=== PATIENT | male | born 1970 | race Caucasian/White ===

== ENCOUNTER 2020-01-14 14:15 | Emergency (ER) | payer BC, SELFPAY ==
[2020-01-14 14:58] VITALS: BP 149/98; PULSE 74; RESP 20; TEMP 36.6; O2SAT 97; BMI 20.2
--- NOTE | 2020-01-14 15:15 | HMH.EDUTC ---
[facility] [place] Clinical Impression: Viral syndrome Sinusitis Qualifiers: Sinusitis location: unspecified location Chronicity: acute Recurrence: non-recurrent Qualified Code(s): J01.90 - Acute sinusitis, unspecified Disposition: Home, Self-Care Condition on Discharge: Good Instructions: Sinusitis, DI for Sinusitis Additional Instructions: Drink plenty of fluids. Take tylenol or ibuprofen for pain or fever. Take the medications as directed. Follow up with your regular doctor. THE COUGH SYRUP WILL MAKE YOU DROWSY, SO DON'T DRIVE OR OPERATE HEAVY MACHINERY AFTER TAKING IT. GO TO THE ER FOR ANY WORSENING SYMPTOMS FOLLOW THE DIRECTIONS ON THE COVID-19 HAND OUT THAT WE GAVE YOU REGARDING SELF-ISOLATION UNTIL YOU KNOW YOUR COVID-19 RESULTS Prescriptions: Promethazine/Dextromethorphan [Promethazine-Dm Syrup] 5 ml PO Q6HP PRN #240 syrup PRN Reason: Cough Transmission Status: Received by [facility] Azithromycin [Z-Mohan 250mg Tab*] 250 mg PO UD DOSE PK #6 tab Transmission Status: Received by [facility] Referrals: Blue Ernst [Primary Care Provider] - Forms: Work/School Release Time of Disposition: 15:23 Medical Decision Making - Medical Records Medical records reviewed: No: I reviewed the patient's medical records. - Angel Inquiry Pt receiving controlled substance: No Vital Signs: 01/14/20 14:58 01/14/20 15:30 Temperature 97.8 F 97.8 F Temperature Source Oral Pulse Rate 74 Pulse Rate [Right Brachial] 74 Respiratory Rate 20 20 Blood Pressure 149/98 H Blood Pressure [Right Arm] 149/98 H Blood Pressure Mean [Right Arm] 115 Blood Pressure Source [Right Arm] Automatic Cuff Blood Pressure Position [Right Arm] Sitting 02 Sat by Pulse Oximetry 97 Oxygen Delivery Method Room Air [facility] [place] - General Stated complaint: lost of taste and smell,diarrhea Time Seen by Provider: 01/14/20 15:17 Mode of Arrival: Ambulatory Source of Information: Patient Limitations: No Limitations Description of Symptoms (Recalled from Triage Doc. by RN): PATIENT C/O UNABLE TO TASTE OR SMELL, MID BACK PAIN, CONGESTION, AND PROD COUGH SINCE TUESDAY; DENIES ANY KNOWN COVID EXPOSURE HEENT Symptoms (Recalled from RN notes): Yes Resp Symptoms (Recalled from RN notes): Yes Skin Symptoms (Recalled from RN notes): No MS Symptoms (Recalled from RN notes): No Functional Status (Recalled from RN notes): WNL - History of Present Illness Provider Complaint: He states that for the past 2 days he has had diarrhea, body aches, sinus congestion and loss of taste and smell. He denies any known COVID-19 exposure. - Related Data Home Medications Medication Instructions Recorded Confirmed Pantoprazole Sodium [Protonix 40mg 40 mg PO DAILY 01/14/20 01/14/20 tablet] lisinopriL [Lisinopril 30mg Tablet] 30 mg PO DAILY 01/14/20 01/14/20 Previous Rx's Medication Instructions Recorded Azithromycin [Z-Mohan 250mg Tab*] 250 mg PO UD DOSE PK #6 tab 01/14/20 Promethazine/Dextromethorphan 5 ml PO Q6HP PRN #240 syrup 01/14/20 [Promethazine-Dm Syrup] Allergies Allergy/AdvReac Type Severity Reaction Status Date / Time Penicillins [PENICILLINS] Allergy Unknown Verified 01/14/20 15:03 - Worker's Comp Is this a Worker's Comp case?: No [facility] History - Hepatitis A Screen Drug use history?: No High risk sexual behaviors?: No History of sexually transmitted infection?: No Currently employed?: No Childcare worker?: No Do you have indoor plumbing?: Yes Do you have electricity?: Yes Attestation statement:: This patient has been screened for Hepatitis A risk factors. I have reviewed the patient's past medical history: Yes - Social History Alcohol Intake: never Occupational Status: other ROS Obtained: Yes All systems reviewed & no additional complaints - Constitutional Constitutional: Reports chills, Reports fever(s), Reports poor appetite, Reports malaise - Eyes Eyes: Reports as
[2020-01-14 15:30] VITALS: BP 149/98; PULSE 74; RESP 20; TEMP 36.6; O2SAT 97
== END 2020-01-14 15:33 | disposition home or self-care (01) ==
PROVIDERS: Emergency Provider Nurse Practitioner Family; PCP Family Medicine
DX: B34.9 Viral infection, unspecified (principal); J01.90 Acute sinusitis, unspecified; Z20.828 Contact with and (suspected) exposure to other viral communicable diseases; I10 Essential (primary) hypertension; Z88.0 Allergy status to penicillin; Z79.899 Other long term (current) drug therapy
CPT/HCPCS: 99201; U0003

== ENCOUNTER 2020-03-08 10:21 | Emergency (ER) | payer BC, SELFPAY ==
[2020-03-08 10:49] VITALS: BP 144/92; PULSE 87; RESP 18; TEMP 36.9; O2SAT 98; BMI 23.6
--- NOTE | 2020-03-08 10:52 | HMH.EDUTC ---
[facility] [place] Clinical Impression: Exposure to COVID-19 virus, Encounter for laboratory testing for COVID-19 virus Disposition: Home, Self-Care Condition on Discharge: Good Instructions: Preventing the Spread of Coronavirus Discharge Instructions Additional Instructions: *Monitor Temp, Over the counter Motrin or Tylenol as directed/as needed Tylenol every 4 hours and Motrin every 6 hours (as long as your family doctor has told you that you can take it) for fever or pain. and straight to ER if unable to lower temp less than 101.0 after medication given *Warm salt water gargles may help to soothe the throat *Throat Lozenges *Warm fluids like tea with honey may help to soothe the throat *Sleep elevated *Humidifier/Vaporizer *Flonase 2 sprays in each nostril daily but be aware that it may take 2-3 days before you notice improvement Follow up IMMEDIATELY for new or worsening symptoms or no Noticeable improvement over the next 48-72 hours. 911 for difficulty breathing or swallowing You was tested for today for COVID19 your test result should be back in the next 24-48 hours, you may call to the [facility] later today or tomorrow to see if your test results are back and the result [phone] [facility] hours are 9am-9pm You was given a handout with instructions for Self Quarantine and Self isolation for while you wait on test results and what to do if they are positive If you are positive the Health Dept will be contacting you also Prescriptions: Fluticasone Propionate [Flonase 50mcg nasal spray 16gm] 1 spr NS DAILY #1 bottle Transmission Status: Pending to [facility] Referrals: Blue Ernst [Primary Care Provider] - As needed Forms: Work/School Release Medical Decision Making - Angel Inquiry Pt receiving controlled substance: No Angel was queried for this patient: No Vital Signs: 03/08/20 10:49 Temperature 98.4 F Temperature Source Oral Pulse Rate [Radial] 87 Respiratory Rate 18 Blood Pressure [Right Arm] 144/92 H Blood Pressure Mean [Right Arm] 109 Blood Pressure Source [Right Arm] Automatic Cuff Blood Pressure Position [Right Arm] Sitting 02 Sat by Pulse Oximetry 98 Oxygen Delivery Method Room Air Orders (Tests/Meds): ORDERS Category Date Time Status Covid-19 Nasal PCR ([facility]) Routine Lab 11/28/20 10:34 [place] [facility] [place] - General Stated complaint: covid test Time Seen by Provider: 03/08/20 10:52 Mode of Arrival: Ambulatory Source of Information: Patient Limitations: No Limitations Description of Symptoms (Recalled from Triage Doc. 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 tested positive for COVID States that he is not having any symptoms but was recommended that he come in and get tested due to working around them - Related Data Home Medications Medication Instructions Recorded Confirmed Pantoprazole Sodium [Protonix 40mg 40 mg PO DAILY 01/14/20 01/14/20 tablet] lisinopriL [Lisinopril 30mg Tablet] 30 mg PO DAILY 01/14/20 01/14/20 Previous Rx's Medication Instructions Recorded Azithromycin [Z-Mohan 250mg Tab*] 250 mg PO UD DOSE PK #6 tab 01/14/20 Promethazine/Dextromethorphan 5 ml PO Q6HP PRN #240 syrup 01/14/20 [Promethazine-Dm Syrup] Fluticasone Propionate [Flonase 1 spr NS DAILY #1 bottle 03/08/20 50mcg nasal spray 16gm] Allergies Allergy/AdvReac Type Severity Reaction Status Date / Time Penicillins [PENICILLINS] Allergy Unknown Verified 01/14/20 15:03 - Worker's Comp Is this a Worker's Comp case?: No [facility] History - Hepatitis A Screen Drug use history?: No High risk sexual behaviors?: No History of sexually transmitted infection?: No
[2020-03-08 11:08] VITALS: BP 144/92; PULSE 87; RESP 18; TEMP 36.9; O2SAT 98
== END 2020-03-08 11:09 | disposition home or self-care (01) ==
PROVIDERS: Emergency Provider Nurse Practitioner; PCP Family Medicine
DX: Z20.828 Contact with and (suspected) exposure to other viral communicable diseases (principal)
CPT/HCPCS: 99201; U0003

== ENCOUNTER → 2022-07-06 11:15 | Outpatient (CLI) | payer BC, SELFPAY ==
[2022-07-06 13:57] LABS: Microscopic, Urine URINE MICROSCOPIC (MICROSCOPIC)
[2022-07-06 14:00] LABS: Appearance,Urine CLEAR (Clear); Bilirubin,Urine Negative (Negative); Blood, Urine Negative (Negative); Color,Urine YELLOW (Yellow); Glucose,Urine (UA) Negative (Negative); Ketones,Urine Negative (Negative); Leukocyte Esterase,Urine Negative (Negative); Nitrate,Urine Negative (Negative); Protein,Urine Negative (Negative); Specific Gravity, Urine 1.015 (1.005-1.030); Urobilinogen,Urine 0.2 EU/dl (0.2)
[2022-07-06 14:21] LABS: Bacteria,Urine Trace /lpf; Squamous Epithelial Cell,Urine Occasional #/hpf (0-5)
== END ==
PROVIDERS: PCP Nurse Practitioner Family; Visit Provider Nurse Practitioner Family
DX: M54.9 Dorsalgia, unspecified (principal)
CPT/HCPCS: 81001

== ENCOUNTER 2023-11-28 14:06 | Outpatient (CLI) | payer BC, SELFPAY ==
[2023-11-28 17:52] LABS: Coronavirus 19, PCR Not Detected (NotDetected); Influenza A, PCR Not Detected (NotDetected); Influenza B, PCR Not Detected (NotDetected)
== END 2023-11-28 23:59 | disposition home or self-care (01) ==
LOC: LAB.DROPOF 11-29 09:20
PROVIDERS: PCP Nurse Practitioner; Visit Provider Nurse Practitioner
DX: J06.9 Acute upper respiratory infection, unspecified (principal); Z72.0 Tobacco use
CPT/HCPCS: 87636

== ENCOUNTER 2024-04-13 19:09 | Outpatient (CLI) | payer BC, SELFPAY | END 2024-04-13 23:59 | disposition home or self-care (01) | LOC: LAB.DROPOF 19:09 | PROVIDERS: PCP Nurse Practitioner Family; Visit Provider Nurse Practitioner Family | DX: A64 Unspecified sexually transmitted disease (principal) | CPT/HCPCS: 87491 ==

== ENCOUNTER 2024-05-11 04:47 | Emergency (ER) | payer BC, SELFPAY ==
--- NOTE | 2024-05-11 04:55 | HMH.EDGENADL ---
Discharge Plan Disposition Patient Disposition: Home, Self-Care Prescriptions Prescriptions: No Action pantoprazole 40 MG tablet,delayed release (DR/EC) 40 mg PO BID losartan 50 mg tablet 50 mg PO DAILY buspirone 5 mg tablet 5 mg PO BID nicotine 14 mg/24 hr patch 24 hour 14 mg transdermal DAILY benzonatate 100 mg capsule 100 mg PO TID Referrals Follow up/Referrals: Provider,Referral, MD [Primary Care Provider] - See instructions Activity Restrictions/Add. Instructions Additional Instructions/Restrictions: Please follow-up with your primary care provider. Please return to the emergency department if you develop any new or worsening symptoms or become concerned for your health. Clinical Impressions Clinical Impression: Chronic hyponatremia Instructions Patient Instructions: DI for Diarrhea and Traveler's Diarrhea -- Adult, DI for Diarrhea and Traveler's Diarrhea -- Child, DI for Nausea -- Adult, DI for Nausea -- Child Print Language Print Language: Serbian Discharge ED Provider: Rolando Kapoor General Adult HPI General Chief complaint: Nausea/Vomiting/Diarrhea Stated complaint: low sodium, nausea Time Seen by Provider: 05/11/24 04:55 History of Present Illness HPI narrative: 53-year-old male with history of recent admissions to the hospital in [facility] for hyponatremia presents for concern for hyponatremia. He reports that he went 2 weeks ago outside hospital for nausea and was diagnosed with hyponatremia with a sodium of 114. They got it up to 125 and then discharged him. He went back on Tuesday, 5 days ago and again had nausea and had a low sodium at 117. He was discharged after improvement. He reports that he is having the nausea again and thinks his sodium is low. He reports he does not want to go back to the other hospital and that is why he is here. Related Data Home Medications ?Medication ?Instructions ?Recorded ?Confirmed pantoprazole 40 mg tablet,delayed 40 mg PO BID GERD 01/14/20 05/11/24 release benzonatate 100 mg capsule 100 mg PO TID 05/11/24 05/11/24 buspirone 5 mg tablet 5 mg PO BID 05/11/24 05/11/24 losartan 50 mg tablet 50 mg PO DAILY 05/11/24 05/11/24 nicotine 14 mg/24 hr daily 14 mg transdermal DAILY 05/11/24 05/11/24 transdermal patch Allergies Allergy/AdvReac Type Severity Reaction Status Date / Time Penicillins (PENICILLINS) Allergy Unknown Verified 04/13/24 14:42 [facility] Disclaimer: The information contained in this section may have been updated after the patient was seen, as this information can be updated by other users. Medical History (Updated 05/11/24 @ 05:52 by Rolando Kapoor MD) History of gastroesophageal reflux (GERD) Hypertension Social History Smoking Status: Current every day smoker tobacco type: cigarettes packs per day: 1 second hand exposure: Yes alcohol intake: never current occupational status: other Travel in the last 8 weeks: None housing: house Have you lived/traveled outside [place] in past 30 days?: No Contact w/someone who lives/traveled outside US past 30 days?: No Exposure to someone with infectious disease in past 14 days?: No Do you have a fever (greater than 100.4 F or 38 C)?: No Have you tested positive for COVID-19: No Exposed to someone with COVID-19 in past 14 days?: No Do you have a sore throat?: No Do you have a cough?: No Do you have any weakness?: No Do you have any diarrhea?: No Are you experiencing any unusual bleeding?: No Do you have any muscle aches/pain?: No Do you have any abdominal pain?: No Are you experiencing loss of taste or smell?: No Other Medical History Have you received the Pneumonia Vaccine: No ROS Obtained: Yes All systems reviewed & no additional complaints except as documented Physical Exam General General appearance: alert and in no apparent distress Head Head exam: atraumatic and normocephalic Eye Eye exam: Present normal appearance, PERRL and EOMI ENT ENT exam: Present normal oropharynx and normal external ear exam Neck Neck exam: Present normal inspection and full ROM Chest Chest inspection: Present normal inspection and symmetric chest wall rise; Absent tenderness Respiratory Respiratory exam: Present normal lung sounds bilaterally; Absent respiratory distress Cardiovascular Cardiovascular exam: Present regular rate and normal rhythm Abdominal Exam Abdominal exam: Present soft; Absent distention, tenderness or guarding Extremities Exam Extremities exam: Present normal inspection; Absent edema or joint swelling Back Exam Back exam: Present normal inspection; Absent tenderness Neurological Exam Neurological exam: Present alert and oriented X3; Absent motor sensory deficit Psychiatric Psychiatric exam: Present normal affect and normal mood Skin Skin exam: Present warm, dry and normal color Lymphatic Lymphatic Findings: no adenopathy Medical Decision Making Medical Records Medical records reviewed: Yes I reviewed the patient's medical records. Screening: Per USPSTF and CDC recommendations, given the prevalence of disease in our region, it is our hospital?s policy to screen for HIV and viral Hepatitis for all patients aged 18 and over and those with ongoing risk factors. Angel Inquiry Pt receiving controlled substance: No Angel was queried for this patient: No Vital Signs: 05/11/24 05:08 05/11/24 05:58 Temperature 97.9 F 97.9 F Temperature Source Oral Oral Pulse Rate 70 Pulse Rate [Right] 76 Respiratory Rate 14 16 Blood Pressure 170/97 H Blood Pressure [Right Arm] 179/106 H Blood Pressure Mean [Right Arm] 130 Blood Pressure Source Automatic Cuff Blood Pressure Position Sitting 02 Sat by Pulse Oximetry 98 Oxygen Delivery Method Room Air Room Air Lab Data Lab results reviewed: Yes I reviewed the patient's lab results. Lab Results 05/11/24 05:04: WBC 8.2, RBC 4.43 L, Hgb 13.4 L, Hct 37.0 L, MCV 83.5, MCH 30.2, MCHC 36.2 H, RDW 12.1, Plt Count 273, MPV 9.3, Neut % (Auto) 56.4, Lymph % (Auto) 27.8, [place] % (Auto) 12.4 H, Eos % (Auto) 2.7, Baso % (Auto) 0.6, Neut # (Auto) 4.6, Lymph # (Auto) 2.3, [place] # (Auto) 1.0, Eos # (Auto) 0.2, Baso # (Auto) 0.1, Sodium 120 L, Potassium 4.1, Chloride 86 L, Carbon Dioxide 27, Anion Gap 11.1, BUN 8 L, Creatinine 0.60 L, Estimated Creat Clear 131, Estimated GFR 140, Est GFR ( Amer) 170, Glucose 120 H, Calcium 9.1, Phosphorus 3.7, Magnesium 1.7, Total Bilirubin 0.4, AST 28, ALT 22, Alkaline Phosphatase 90, Total Protein 6.2 L, Albumin 4.3, Globulin 1.9, Albumin/Globulin Ratio 2.3 H, Lipase 68 05/11/24 05:04 05/11/24 05:04 Orders (Tests/Meds): ED MEDICATIONS Discontinued Medications Generic Name Dose Route Start Last Admin Trade Name Freq PRN Reason Stop Dose Admin Belladonna Alkaloids 60 ml 05/11/24 05:27 05/11/24 05:31 Belladonna Alkaloids 60 Ml Ml PO 05/11/24 05:28 60 ml ONCE ONE Administration ORDERS Category Date Time Status CBC w/Auto Diff [Complete Blood Count Auto Diff] Stat Lab 05/11/24 05:04 Completed CMP [Comprehensive Metabolic Panel] Stat Lab 05/11/24 05:04 Completed Creatinine,Urine Random Stat Lab 05/11/24 05:01 Ordered HIV Combo Stat Lab 05/11/24 05:04 Received Hepatitis C Ab Qual. W/ RFX Stat Lab 05/11/24 05:04 Received Lipase Stat Lab 05/11/24 05:04 Completed MAG [Magnesium] Stat Lab 05/11/24 05:04 Completed PHOS [Phosphorous] Stat Lab 05/11/24 05:04 Completed Sodium,Urine Random Stat Lab 05/11/24 05:01 Ordered Medical Decision Narrative: 53-year-old male with multiple recent admissions to outside hospital for hyponatremia presents for nausea (the same symptom he had when his sodium was low previously). History was obtained via interactive discussion with patient. On arrival, patient is [afebrile, hemodynamically stable, satting appropriately, alert, oriented x4, GCS 15], moving all extremities spontaneously. Full physical exam performed and significant for no abdominal tenderness, no neurologic dysfunction Differential includes but is not limited to electrolyte derangement, renal dysfunction, gastritis, GERD,. Patient was given GI cocktail for symptomatic management and correction of underlying abnormalities. Workup initiated including CBC CMP mag Phos. On re-evaluation, patient [remains afebrile, HD stable.] Laboratory workup independently interpreted by me and significant for hyponatremia at 120, mild hypochloremia, normal renal function, normal glucose, no other significant electrolyte derangement. CBC unremarkable.. Given patient history, exam and workup, patient's presentation most likely represents subacute/chronic hyponatremia. Patient was seen admitted and worked up on 2 separate occasions at another facility. He reports that they ordered all manner of labs and images. He was discharged with a sodium of 123 a few days ago. While his sodium is markedly low, he does not have any concerning neurologic symptoms, only this intermittent GERD sensation. Given he has been at least subacutely hyponatremic, I am not as concerned that patient requires admission for aggressive therapy at this time. I discussed with patient the possibility of admission but he reports that the sodium is actually better than he was expecting. He has follow-up scheduled on Tuesday in clinic with the other facility for continued evaluation. He reports to follow-up with them rather than be admitted at this time. Patient was discharged in stable condition with return precautions. Procedures Risk/Benefits of Procedure(s) Were Explained: Yes Critical Care Critical Care Time Critical Care Time: No
--- NOTE | 2024-05-11 05:01 | PC.NURSE ---
Pt ambulatory to Emergency Department.
[2024-05-11 05:08] VITALS: BP 179/106; PULSE 76; RESP 14; TEMP 36.6; O2SAT 98; BMI 20.2
[2024-05-11 05:16] LABS: Basophils # 0.1 K/mm3 (0-0.2); Basophils % 0.6 % (0.1-2.0); Eosinophils # 0.2 K/mm3 (0.0-0.4); Eosinophils % 2.7 % (0.1-12.0); Hemoglobin 13.4 g/dL (14.1-18.0); Lymphocytes # 2.3 K/mm3 (0.7-4.5); Lymphocytes % 27.8 % (10-50); Mean Corpuscular HGB Conc 36.2 g/dL (31.8-35.4); Mean Corpuscular Hemoglobin 30.2 pg (27.0-31.2); Mean Corpuscular Volume 83.5 fl (80-94); Mean Platelet Volume 9.3 fl (7.4-10.4); Monocytes % 12.4 % (1.7-9.3); Neutrophils # 4.6 K/mm3 (1.8-7.8); Neutrophils % 56.4 % (37.0-80.0); Platelet Count 273 K/mm3 (142-424); Red Blood Count 4.43 M/mm3 (4.60-6.20); Red Cell Distribution Width 12.1 % (11.5-17.5); White Blood Count 8.2 K/mm3 (4.8-10.8)
[2024-05-11 05:24] LABS: Alanine Aminotransferase 22 U/L (12-78); Albumin Level 4.3 g/dl (3.5-5.0); Albumin/Globulin Ratio 2.3 (1.1-1.8); Alkaline Phosphatase 90 U/L (38-126); Anion Gap 11.1 mEq/L (5-15); Aspartate Amino Transferase 28 U/L (17-59); Bilirubin,Total 0.4 mg/dl (0.2-1.3); Blood Urea Nitrogen 8 mg/dl (9-20); Calcium 9.1 mg/dl (8.4-10.2); Carbon Dioxide 27 mmol/L (22.0-30.0); Chloride 86 mmol/L (98-107); Creatinine Clearance Estimated 131 mL/min (50-200); Estimated Glomerular Filt Rate 140 ml/min (>60); GFR (African American) 170 ML/MIN (>60); Globulin 1.9 g/dL (1.3-3.2); Glucose 120 mg/dl (74-100); Magnesium 1.7 mg/dl (1.6-2.3); Phosphorous 3.7 mg/dl (2.5-4.5); Potassium 4.1 mmoL/L (3.5-5.1); Sodium 120 mmol/L (136-145); Total Protein,Serum 6.2 g/dl (6.3-8.2)
[2024-05-11] MEDS: BELLADONNA ALKALOIDS 60 ML ML PO (05:31)
[2024-05-11 05:58] VITALS: BP 170/97; PULSE 70; RESP 16; TEMP 36.6; O2SAT 99
[2024-05-11 06:01] LABS: Lipase 68 U/L (23-300)
[2024-05-11 06:18] LABS: Creatinine,Urine Random 23 mg/dL (Not Estab.)
[2024-05-11 10:57] LABS: Hepatitis C Ab Qual. W/ RFX NEGATIVE (Negative)
[2024-05-11 13:15] LABS: HIV Combo NEGATIVE (Negative)
[2024-05-13 04:07] LABS: Osmolality, Urine 267 mOsmol/kg (.)
== END 2024-05-11 06:01 | disposition home or self-care (01) ==
PROVIDERS: Emergency Provider Emergency Medicine
DX: E87.1 Hypo-osmolality and hyponatremia (principal); R11.0 Nausea; F17.210 Nicotine dependence, cigarettes, uncomplicated
CPT/HCPCS: 80053; 82570; 83690; 83735; 83935; 84100; 84540; 85025; 86803; 87389; 99283

== ENCOUNTER 2025-03-27 15:29 | Outpatient (CLI) | payer BC, SELFPAY ==
[2025-03-27 19:47] LABS: Alanine Aminotransferase 28 U/L (12-78); Albumin Level 4.3 g/dl (3.5-5.0); Albumin/Globulin Ratio 1.8 (1.1-1.8); Alkaline Phosphatase 94 U/L (38-126); Anion Gap 11.4 mEq/L (5-15); Aspartate Amino Transferase 31 U/L (17-59); Bilirubin,Total 0.4 mg/dl (0.2-1.3); Blood Urea Nitrogen 12 mg/dl (9-20); Carbon Dioxide 23 mmol/L (22.0-30.0); Chloride 88 mmol/L (98-107); Creatinine,Serum 0.70 mg/dl (0.66-1.25); Estimated Glomerular Filt Rate 117 ml/min (>60); GFR (African American) 142 ML/MIN (>60); Globulin 2.4 g/dL (1.3-3.2); Potassium 4.4 mmoL/L (3.5-5.1); Sodium 118 mmol/L (136-145); Total Protein,Serum 6.7 g/dl (6.3-8.2)
[2025-03-27 20:42] LABS: Calcium 8.5 mg/dl (8.4-10.2); Glucose 91 mg/dl (74-100)
--- OUTSIDE RECORDS SUMMARY | 2025-03-28 11:55 | XMS_ITS | Clinical Summary ---
Author Organization [facility] T Address [address] [place] [address] Phone Care Team Providers Care Orthoptist Name Role Phone Nonstaff, Referring Primary Care Provider Unavai lable Allergies Active Allergy Reactions Criticality Noted Date Comments Penicillins Rash 05/19/2024 Medications losartan (COZAAR) 50 mg Oral Tablet Take 50 mg by mouth daily. 05/04/2024 Active nicotine (NICODERM CQ) 21 mg/24 hr TD Patch [address] 1 Patch onto the skin daily. 28 Patch 05/22/2024 3:23 PM EST 05/23/2024 Active busPIRone (BUSPAR) 5 mg Oral Tablet Take 1 Tablet by mouth 2 times daily. 60 Tablet 06/20/2024 Active famotidine (PEPCID) 20 mg Oral Tablet Take 1 Tablet by mouth 2 times daily. 60 Tablet 06/20/2024 Active Active Problems Problem Noted Date Diagnosed Date Hyponatremia 05/19/2024 Assessment & Plan (05/22/2024 1:04 PM EST): -Sodium 116 at time of admission, has since improved to 130 this morning -Nephrology following. Appreciate assistance and recommendations. -Continue with fluid restriction -Continue salt tablets per nephrology recommendations -Monitor ongoing serial sodium labs Anxiety 05/19/2024 Assessment & Plan (05/22/2024 1:04 PM EST): -Continue tug boat captain Buspar -Well controlled, calm Hypertension 05/19/2024 Assessment & Plan (05/22/2024 1:04 PM EST): -BP remains stable -Continue Losartan -Given increased BP, will increase dosing of Losartan GERD (gastroesophageal reflux disease) Assessment & Plan (05/22/2024 1:04 PM EST): Continue Pepcid Normocytic anemia 05/19/2024 Assessment & Plan (05/22/2024 1:04 PM EST): -Hgb 13.5 this morning -Remains stable, and actually increased from previous day Tobacco abuse 05/19/2024 Assessment & Plan (05/22/2024 1:04 PM EST): -Tobacco cessation recommended Surgical History Surgery Date Site/Laterality Comments CHOLECYSTECTOMY Medical History Medical History Date Comments Essential (primary) hypertension Anxiety disorder Heartburn Social History Tobacco Use Types Packs/Day Years Used Date Smoking Tobacco: Every Day Cigarettes Tobacco Cessation:Ready to Q uit: Not Asked; Counseling Given: Yes Alcohol Use Standard Drinks/Week Comments Not Currently 0 (1 standard drink = 0.6 oz pur e alcohol) [facility] Utilities Answer Date Recorded In the past 12 months has [employer] electric, gas, oil, or water [employer] threatened to shut off services in your home? No 05/21/2024 Overall Financial Resource Strain (CARDIA) Answe r Date Recorded How hard is it for you to pa y for the very basics like food, housing, medical care, and heating? Not hard at all 05/21/2024 PHQ-2 Answer Date Recorded PHQ-2 Total Score 0 05/21/2024 [facility] [place] [facility] Occup[facility] - Occupational Stress Questionnaire Answer Date Recorded Do you feel stress - tense, restless, nervous, or anxious, or unable to sleep at night because your mind is troubled all the time - these days? Only a little 05/21/2024 Exercise Vital Sign Answer Date Recorde d On average, how many days pe r week do you engage in moderate to strenuous exercise (like a brisk walk)? 7 days 05/21/2024 On average, how many minutes do you engage in exercise at this level? 60 min 05/21/2024 Hunger Vital Sign Answer Date Recorded Within the past 12 months, y ou worried that your food would run out before you got the money to buy more. Never true 05/21/19 Within the past 12 months, t he food you bought just didn't last and you didn't have money to get more. Never true 05/21/2024 [facility] HRSN CMS IP Transportation Answer D ate Recorded In the past 12 months, has l ack of reliable transportation kept you from medical appointments, meetings, work or from getting things needed for daily living? No 05/21/2024 Sex and Gender Information Value Date Recorded Sex Assigned at Not on file Legal Sex Male 9:11 PM EDT Gender Identity Not on file Sexual Orientation Not on file Last Filed Vital Signs Vital Sign Reading Time Taken Comments Blood Pressure 142/86 06/05/2024 1:23 PM EST Pulse 88 06/05/2024 1:23 PM EST Temperature 36.4 C (97.6 F) 05/22/2024 11:59 AM EST Respiratory Rate 16 05/22/2024 11:59 AM EST Oxygen Saturation 100% 05/22/2024 11:59 AM EST Inhaled Oxygen Concentration - - Weight 67.1 kg (148 lb) 06/05/2024 1:23 PM EST Height 180.3 cm (5' 11 ) 06/05/2024 1:23 PM EST Body Mass Index 20.64 06/05/2024 1:23 PM EST Plan of Treatment Health Maintenance Due Date Last Done Comments Annual Wellness Exam 1972 Hepatitis B Vaccine (1 of 3 - 19+ 3-dose series) 1988 Pneumococcal Vaccine 50+ (1 of 2 - PCV) 1988 DTaP/TDaP/Td (1 - Tdap) 06/13/1996 06/12/1996 Cologuard 2014 FIT 2014 Sigmoidoscopy 2014 Virtual Colonography 2014 Zoster (1 of 2) 10/04/2019 COVID-19 Vaccine (2 - 2024-2 6 season) 2024 12/24/2020 Influenza Vaccine (#1) 2024 Colon Cancer Screening 04/14/2028 Colonoscopy 04/14/2028 04/14/2018 Meningococcal B Vaccine Aged Out No l onger eligible based on patient's age to complete this topic Insurance ANTHEM PPO ANTHEM PPO ANTHEM PPO STEVEN PPO Advance Directives For more information, please contact: [phone] * Full Code (Latest Code Status on File) Date Activated Date Inactivated Comments 05/19/2024 9:17 AM 05/22/2024 9:23 PM Care Teams Orthoptist Relationship Specialty Start Date End Date Nonstaff, Referring PCP - General 05/19/24
== END 2025-03-27 23:59 | disposition home or self-care (01) ==
LOC: LAB.DROPOF 03-28 10:32
PROVIDERS: PCP Nurse Practitioner; Visit Provider Family Medicine
DX: J01.90 Acute sinusitis, unspecified (principal)
CPT/HCPCS: 80053